=== PATIENT | male | born 1950 | race Caucasian/White ===

== ENCOUNTER 2019-11-06 13:35 | Outpatient (CLI) | payer MEDICARE, SELFPAY ==
--- NOTE | 2019-11-06 13:42 | ECG_ITS ---
Measurements Intervals [place] Rate: 67 P: 76 DC: 164 QRS: 35 QRSD: 90 T: 38 QT: 367 QTc: 389 Interpretive Statements SINUS RHYTHM ATRIAL AND VENTRICULAR PREMATURE COMPLEXES BASELINE ARTIFACT- I, II, AVR, V5-V6 BORDERLINE ECG Electronically Signed On 11-06-2019 14:02:56 [employer] by Alli Alicia D.O.
== END 2019-11-06 13:36 | disposition home or self-care (01) ==
PROVIDERS: PCP Emergency Medicine; Visit Provider Urology
DX: Z87.891 Personal history of nicotine dependence (principal); R94.31 Abnormal electrocardiogram [ECG] [EKG]
CPT/HCPCS: 93005